=== PATIENT | female | born 1965 | race Caucasian/White ===

== ENCOUNTER 2017-05-14 09:53 | Day surgery (SDC) | payer OTHER ==
[~2017-05-14] VITALS: Ht 152.4 cm; Wt 76.4 kg
[2017-05-14] MEDS: Lactated Ringer's 1,000 ML IV SCH ×2 (06:13→11:42)
[~2017-05-14 09:53] MED LIST: BACL10TA PO; BACL20TA PO; CeFAZolin Inj 2 GM in IV Premix 1 EACH IV ONE; DALF10TA PO; Dexamethasone 4 mg/mL Inj IVPUSH PRN; EPHEDrine Sulfate 50 mg/mL Inj IVPUSH PRN; ESTR0.45 PO; HYDROmorphone 1 mg/mL Inj IVPUSH PRN; IBUP200C PO; IMI100 PO; INTE44DI SQ; LEVO88TA4 PO; Labetalol 5 mg/mL 20 mL Inj IV PRN; Lactated Ringer's 1,000 ML IV SCH; Lactated Ringer's 500 ML IV PRN; MIRA25TA PO; MULT-666 PO; MetoCLOpramide 5 mg/mL 2 mL Inj IVPUSH PRN; Ondansetron 2 mg/mL 2 mL Inj IVPUSH PRN; Phenylephrine 10,000 mCg/mL Inj IVPUSH PRN; fentaNYL-PF 50 mCg/mL 2 mL Inj IVPUSH PRN; hydrALAZINE 20 mg/mL Inj IVPUSH PRN
[2017-05-14] MEDS ORDERED: Propofol 10,000 mCg/mL 20 mL Inj ONE (09:54)
[2017-05-14] MEDS ORDERED: Ketamine 10 mg/mL 20 mL Inj ONE (09:54)
[2017-05-14] MEDS ORDERED: CeFAZolin Inj 2 gm / 50mL D5W IV ONE (10:22)
[2017-05-14 10:24] VITALS: BP 113/77; PULSE 79; RESP 16; O2SAT 98
--- NOTE | 2017-05-14 11:42 | PCM.HPANE ---
Patient Data Date of Service: May 14, 2017 Surgeon Admitting Provider: Attending Provider:Sotero Carl MD Primary Care Physician:Kelly Griffin Other Provider:Adri Garcia Anesthesia Reason for Visit Mucous Cyst Left Index Finger Ht/WT & BMI Height (Feet): 5 Height (Inches): 0.00 Weight (Kilograms): 76.400 Body Mass Index 33.00 Allergies Coded Allergies: Sulfa (Sulfonamide Antibiotics) (Verified Allergy, Severe, Rash, 05/08/17) Past Anesthesia History Anesthesia History: Denies:: Abnormal Airway, Anesthesia Reactions, Difficult Intubation, Fam Anesthesia Reaction, Fam Malignant Hypertherm, Malignant Hyperthermia Diabetes History Hx Diabetes?: No MRSA MRSA: No Medications Home Meds Incl Beta Dave: No Reported Medications Sumatriptan (Imitrex)100 Mg Iwtnks131 Mg PO PRN migraines 05/12/17 Multivitamin (Once Daily)1 Each Tablet1 Each PO DAILY 05/08/17 Ibuprofen 200 Mg Xecrgww773 Mg PO QID PRN For Pain Ref 0 05/08/17 Mirabegron ER (Myrbetriq)25 Mg Cceias71 Mg PO DAILY 05/08/17 Estrogens, Conjugated (Premarin)0.45 Mg Tablet0.45 Mg PO DAILY 30 Days 05/08/17 Baclofen 20 Mg Tjjkde88 Mg PO BID Ref 0 05/08/17 Baclofen 10 Mg Sytloh13 Mg PO BID Ref 0 05/08/17 Dalfampridine (Ampyra)10 Mg Hruiwf60 Mg PO BID 05/08/17 Interferon Beta-1A/Albumin (Rebif 44 Mcg/0.5 ml Syringe)44 Mcg/0.5 Ml Qnmgqen85 Mcg SQ WEEKLY 05/08/17 Levothyroxine 88 Mcg Foyuhg34 Mcg PO DAILY Ref 0 05/08/17 History History of ENT Problems?: Yes HEENT History: Positive for:: TMJ (click at times) Denies:: Abnormal Airway Difficult Intubation Dysphagia Hearing Problem Sinus Problem Denture Type: None Teeth Condition: Within Normal Limits Hx of Heart Problems?: No Cardiovascular History: Denies:: AICD Abdominal Aortic Aneurism Atrial Fibrillation Cardiac Surgery Chest Pain Congestive Heart Failure Coronary Artery Disease Edema Heart Murmur Hypertension Irregular Heartbeat Pacemaker Peripheral Vascular Rheumatic Fever Thrombophlebitis Valvular Heart Disease Hx of Respiratory Problem?: No Respiratory History: Denies:: Use of C-PAP Machine Hx Neurologic Problems?: Yes Neurological History: Positive for:: Headaches (sleep deprovation and lack of water may cause headach) Denies:: Alzheimer's Disease CVA Dementia Dizziness Multiple Sclerosis Parkinson's Disease Seizures TIA Other Neurological Pertinent: Myesthenia Gravis Hx of GI Problems?: No Hx of Problems?: No Genitourinary History: Denies:: HX of Hemodialysis Female Hx: Denies:: Currently Problems with Breasts? Skin History: Denies:: History Skin Disorders? Pressure Ulcers Hx Musculoskeletal Problems?: Yes Other History/Comment MS Hx of Psycho/Social Problems?: No Hx Surgeries?: Yes (Hysterectomy 2009) Other History: Positive for:: Hospitalization (hysterectomy) Thyroid Disease Denies:: Cancer History Blood Transfusions: Positive for:: Accept Blood Products? Denies:: Blood Transfusions Hx Diabetes: No Hx Alcohol Use: YesAlcoholic Drinks Per Day: 1-2 mixed drinks or wine a week Hx Substance Use: No Stop/Bang Treated for Sleep Apnea?: No Do You Have a CPAP Machine?: No S-Snoring: Do You Snore Loudly: No T-Tired: feel tired, fatigued: No O-Obsered: Observed not breath: No P-Blood Pressure: treated: No B- Body Mass Index > 35 kg/m2: No A- Age over 50: No N- Neck Large Circumference: No G- Gender Male: No KENNEDI Total Score: 0 KENNEDI Risk Assessment: Low Risk, <3 Yes Risk Assessment Category Category 1A: Patient has history of documented sleep apnea, and HAS NOT received any narcotic, sedative or anesthesia administration during this stay. Category 1B: Patient has history of documented sleep apnea, and HAS received any narcotic , sedative or anesthesia administration during this stay Category 2: Patient has SUSPECTED Obstructive Sleep Apnea, and HAS received any narcotic , sedative or anesthesia administration during this stay. Category 3: Patient has SUSPECTED Obstructive Sleep Apnea and HAS NOT received narcotic, sedative or anesthesia administration during this stay. Category 4: Outpatient in Procedural Areas with known sleep apnea or who screen positive for High Risk via the STOP/BANG questionnaire. Exam Exam Vital Signs Vital Signs Date Time Temp Pulse Resp B/P Pulse Ox O2 Delivery O2 Flow Rate FiO2 05/14/17 10:24 36.2 79 16 113/77 98 Room Air General Appearance: Alert, Oriented X3, Cooperative, No Acute Distress HEENT/AIRWAY: MP 2 Lungs: Clear to Auscultation, Normal Air Movement Heart: Exam Unremarkable, Regular Rate/Rhythm, No Murmurs/Rubs/Gallops Meds/Labs/Diagnostics Admission Meds Current Medications Lactated Ringer's (Lr) 1,000 ml @ 120 mls/hr Q8H20M IV Last administered on t 06:13; Start 05/14/17 at 05:00; Stop 05/14/17 at 13:19 Plan Impression Patient chart reviewed, patient interviewed and anesthestic plan with risks, benefits, and alternatives discussed, and informed consent obtained. NPO per Anesth. Guidelines: Yes ASA Physical Status: ASA2 Mod Systemic Disease Anesthetic Plan: MAC Bene/Risks/Altern/Consents: Yes HP Complete Prior to Induction: Yes Reza Tirado MD May 14, 2017 11:42
[2017-05-14] MEDS ORDERED: Lidocaine PF 1% 30 mL Inj INFILTRATE ONE (11:55)
[2017-05-14] MEDS ORDERED: Bupivacaine-MPF 0.5% 30 mL Inj INFILTRATE ONE (11:55)
[2017-05-14 12:26] VITALS: BP 124/63; PULSE 96; RESP 17; O2SAT 98
--- NOTE | 2017-05-14 12:49 | PCM.ANEP1 ---
Post Anesthesia PACU Phase 1 Assessment Vital Signs Vital Signs Date Time Temp Pulse Resp B/P Pulse Ox O2 Delivery O2 Flow Rate FiO2 05/14/17 12:26 36.6 96 17 124/63 98 Room Air 05/14/17 10:24 36.2 79 16 113/77 98 Room Air Anesthetic Administered: MAC Level of Alertness: Awake, talking Pain: No Nausea or Vomiting: No CV Function & Hydration Stable: Yes Airway Device: Oxygen Delivery: Room Air Lungs: Clear to Auscultation, Normal Air Movement PACU Phase 2 Assessment Complications: No Follow up Care: No Patient Instructions Provided: N/A Reza Tirado MD May 14, 2017 12:49
[2017-05-14 12:51] VITALS: BP 116/76; PULSE 85; RESP 14; O2SAT 96
--- NOTE | 2017-05-15 14:32 | OP ---
[address] [address] OPERATIVE REPORT PATIENT: KEAGAN KHAN : 1965 MR#: [id number] ADMIT: 05/14/2017 JOB ID: [id number] DATE OF SURGERY: 05/14/2017 SURGEON: Sotero Carl MD SECRETARIAL TEACHER: None. PREOPERATIVE DIAGNOSIS(ES): Left index finger mucous cyst. POSTOPERATIVE DIAGNOSIS(ES): Left index finger mucous cyst. PROCEDURE: 1. Excision of left index finger mucous cyst. 2. Left index finger distal interphalangeal joint debridement. ANESTHESIA: MAC with local. COMPLICATIONS: None apparent. ESTIMATED BLOOD LOSS: Minimal. SPECIMEN: Left index finger mucous cyst to Pathology. INDICATIONS FOR PROCEDURE: This is a 51-year-old, female patient with a slowly enlarging left index finger mass consistent with a mucous cyst. At this point excision is indicated to prevent future complications. PROCEDURE AND FINDINGS: The patient was identified in the preoperative area. Surgical site was marked. The patient was then taken back to the operating room placed supine on the operating table. Appropriate time-outs were taken. MAC was induced smoothly. The patient was then prepped and draped in the usual sterile manner. Local anesthesia was then infiltrated to the left index finger consisting of 1% lidocaine with 0.25% Marcaine around the neurovascular bundle in a dorsal ring block. An oblique incision was then made directly over the cyst transitioning into a midline incision over the DIP joint. Incision was made with a #15 blade just through the skin. I first turned my attention to the area over the mucous cyst. Incision was carried down to the underlying mucous cyst. I then used a pair of Iris scissors to elevate the skin flap off of the cyst circumferentially. Once this has been done, the cyst was elevated off of its deep attachments from a distal to proximal fashion until the cyst stalk enters the radial aspect of the DIP joint. The cyst was then excised and passed off to Pathology as a specimen. A longitudinal incision was then made along the radial aspect of the extensor apparatus over the DIP joint. A cuff of the dorsal capsule was removed with a #15 blade exposing the radial aspect of the DIP joint. There were a couple of areas of bone spurring on the distal end of the middle phalanx. These were removed and smoothed with a small rongeur. Tourniquet was released and hemostasis was obtained with bipolar electrocautery. The incision was then reapproximated using several 5-0 Prolene horizontal mattress sutures. The patient tolerated the procedure well. Needle count, sponge count, instrument counts were correct at the end of the procedure. The patient was transported to recovery in stable condition.
--- NOTE | 2017-05-20 10:57 | PATH ---
SURGICAL PATHOLOGY Attending Physician:Sotero Carl CASE STATUS: Signed Out PATIENT NAME: KEAGAN KHAN PID: [id number] : 1965 DATE COLLECTED:05/14/2017 23:34 SPECIMEN: Soft Tissue Mass, Biopsy CLINICAL HISTORY: LEFT INDEX FINGER MUCOUS CYST 1). LEFT FINGER MUCOUS CYST FINAL DIAGNOSIS: Left Index Finger Mucous Cyst, Excision: - Fragments of fibromembranous tissue consistent with cyst lining, favor ganglion cyst. - Separate fragments of soft tissue with scattered blood vessels and nerves. ICD10: M67.94 GROSS DESCRIPTION: The specimen is received in one formalin filled container labeled with the patient's name, sublabeled "left finger mucous cyst" and consists of 2 light brower-white rough portions of tissue which aggregate to 0.4 x 0.3 x 0.2 CM. The specimen is entirely submitted in one cassette. 05/15/2017RI ICD-9 CODES: CPT CODES: 59598 Electronically Signed Out Christian Bedoya MD [facility] [address], [place] [address] Technical component performed at [facility], [address] [place] [address] Ave[address], [place], [address]
== END 2017-05-14 23:59 | disposition home or self-care (01) ==
LOC: SAS 09:53
PROVIDERS: ATTEND Plastic Surgery
DX: M67.442 Ganglion, left hand (principal); Z90.710 Acquired absence of both cervix and uterus
CPT/HCPCS: 26160; J0690; J2704; J7120